=== PATIENT | female | born 1945 | race Caucasian/White ===

== ENCOUNTER 2018-10-20 09:36 | Emergency (ER) | payer OTHER ==
[~2018-10-20] VITALS: Ht 160 cm; Wt 95.3 kg
[2018-10-20] MEDS ORDERED: XARELTO10 MG (09:44)
[2018-10-20] MEDS ORDERED: OMEPRAZOLE40 MG (09:45)
== END 2018-10-20 13:25 | disposition home or self-care (01) ==
LOC: ER 09:36
DX: I87.2 Venous insufficiency (chronic) (peripheral) (principal); R60.0 Localized edema